=== PATIENT | male | born 1995 | race Caucasian/White ===

== ENCOUNTER 2019-11-23 18:38 | Emergency (ER) | payer BC ==
[2019-11-23] MEDS ORDERED: Amoxicillin/Clavulanate K 875-125 MG Tab ONE (19:00)
--- NOTE | 2019-11-23 20:39 | ER ---
HPI: A 24-year-old male here with complaints of head congestion, facial pressure, coughing, sore throat, and losing his voice. This all started a few days ago. He just lost his voice within the last couple of days. He denies any problems with chest pain, shortness of breath, wheezing, high fever or GI symptoms. OBJECTIVE: GENERAL APPEARANCE: The patient is awake and alert. He is speaking with mostly a whisper. He has obvious nasal congestion. VITAL SIGNS: Reviewed. Blood pressure is a little high 153/96. He is afebrile. HEENT: Ears, TMs are both slightly bulging with yellow fluid behind them. Nares are congested. The patient has mild bimaxillary sinus tenderness with palpation. Oral mucous membranes moist. Posterior pharynx shows drainage and cobblestoning. NECK: Supple. LUNGS: Clear. SKIN: Warm and dry. DIAGNOSES: 1. Sinusitis. 2. Laryngitis. TREATMENT PLAN: Augmentin will be started. He is to use a decongestant for 3 to 4 days as well. I advised the patient to recheck his blood pressure when he is feeling better. Followup is otherwise p.r.n. CRS/MODL /[id number]
== END 2019-11-23 19:10 | disposition home or self-care (01) ==
LOC: LB.ED 18:38
DX: J32.9 Chronic sinusitis, unspecified (principal); J04.0 Acute laryngitis; H93.8X3 Other specified disorders of ear, bilateral
CPT/HCPCS: 99282; A9270-GY

== ENCOUNTER 2020-01-08 17:47 | Emergency (ER) | payer BC ==
[2020-01-08] MEDS ORDERED: Oseltamivir 75 MG Cap ONE (18:00)
--- NOTE | 2020-01-08 18:27 | EDM.PDOC ---
ED HPI GENERAL MEDICAL PROBLEM - General Stated Complaint: Cough, Weakness, Chills Time Seen by Provider: 01/08/20 17:50 Source of Information: Reports: Patient History Limitations: Reports: No Limitations - History of Present Illness INITIAL COMMENTS - FREE TEXT/NARRATIVE: Reji was well until last evening when he noticed a cough. Non-productive cough since and chills. Ethel a bit of a headache and was nauseated after lunch. Feels generally weak and tired. No other gi/gu sx's or abdominal pain. No SOB. Headache Pain Score (Numeric/FACES): 4 Middle Back Pain Score (Numeric/FACES): 5 - Related Data Allergies Allergy/AdvReac Type Severity Reaction Status Date / Time No Known Allergies Allergy Verified 11/23/19 18:58 Home Meds: Home Meds NK [No Known Home Meds] 11/23/19 [History] ED ROS GENERAL - Review of Systems Review Of Systems: Comprehensive ROS is negative, except as noted in HPI. ED EXAM, GENERAL - Physical Exam Exam: See Below Exam Limited By: No Limitations General Appearance: Alert, WD/WN, No Apparent Distress Eye Exam: Bilateral Eye: EOMI, Normal Inspection, PERRL Ears: Normal External Exam, Normal Canal, Hearing Grossly Normal, Normal TMs Nose: Normal Inspection, Normal Mucosa Throat/Mouth: Normal Inspection, Normal Oropharynx, Normal Voice Head: Atraumatic, Normocephalic Neck: Normal Inspection, Supple, Non-Tender, Full Range of Motion Respiratory/Chest: No Respiratory Distress, Lungs Clear, Normal Breath Sounds Cardiovascular: Regular Rate, Rhythm, No Gallop, No Murmur, No Rub GI/Abdominal: Normal Bowel Sounds, Soft, Non-Tender Back Exam: Normal Inspection Extremities: Normal Inspection, Normal Range of Motion, Non-Tender, Normal Capillary Refill Neurological: Alert, Oriented, Normal Cognition, Normal Gait Psychiatric: Normal Affect, Normal Mood Skin Exam: Warm, Dry, No Rash Lymphatic: No Adenopathy Course - Vital Signs Last Recorded V/S: Last Vital Signs Temp 99.6 F 01/08/20 18:10 Pulse 119 H 01/08/20 17:57 Resp 18 01/08/20 17:57 BP 124/64 01/08/20 17:57 Pulse Ox 100 01/08/20 17:57 Departure - Departure Time of Disposition: 18:27 Disposition: Home, Self-Care 01 Clinical Impression: Influenza, Influenza - Discharge Information Sepsis Event Note - Evaluation Sepsis Screening Result: No Definite Risk - Focused Exam Vital Signs: Vital Signs Temp Pulse Resp BP Pulse Ox 01/08/20 18:10 99.6 F 01/08/20 17:57 98.5 F 119 H 18 124/64 100 Date Exam was Performed: 01/08/20 Time Exam was Performed: 18:27
== END 2020-01-08 19:00 | disposition home or self-care (01) ==
LOC: LB.ED 17:47
DX: J11.1 Influenza due to unidentified influenza virus with other respiratory manifestations (principal)
CPT/HCPCS: 87804; 99282; 99284; A9270